=== PATIENT | male | born 1990 | race Two or more races ===

== ENCOUNTER 2020-12-19 02:57 | Emergency (ER) | payer OTHER ==
[~2020-12-19] VITALS: Ht 188 cm; Wt 86.2 kg
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
[2020-12-19] MEDS ORDERED: TDAP [DIPH/PERTUSSIS/TET] 0.5 ML VIAL IM ONE (03:20)
[2020-12-19] MEDS: TDAP [DIPH/PERTUSSIS/TET] 0.5 ML VIAL IM ONE (03:24)
--- NOTE | 2020-12-19 03:41 | NUR ---
BROUGHT TO CT
[2020-12-19] MEDS ORDERED: LIDOCAINE 2%-EPI 1:100,000 30 ML VIAL ONE (03:48)
--- NOTE | 2020-12-19 03:51 | NUR ---
AT BEDSIDE FOR SUTURE PLACEMENT
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
--- NOTE | 2020-12-19 05:03 | NUR ---
Patient discharged to home in stable condition. Written and verbal after care instructions given. Patient verbalizes understanding of instruction. Pt in custody.
[2020-12-19 05:04] VITALS: BP 127/76
== END 2020-12-19 05:04 ==
LOC: ER 02:59
DX: S02.2XXA Fracture of nasal bones, initial encounter for closed fracture (principal); S01.81XA Laceration without foreign body of other part of head, initial encounter; F10.129 Alcohol abuse with intoxication, unspecified; W19.XXXA Unspecified fall, initial encounter; Y93.89 Activity, other specified; Y92.89 Other specified places as the place of occurrence of the external cause; Y99.8 Other external cause status; Y90.9 Presence of alcohol in blood, level not specified
CPT/HCPCS: 12014; 70450; 72125; 99285; A6403; J3490; 90715